=== PATIENT | female | born 1965 | race African-American/Black ===

== ENCOUNTER 2018-12-29 10:56 | Outpatient (CLI) | payer BC ==
--- NOTE | 2018-12-29 13:18 | MMO ---
Bilateral MAMMO Bilat Screen [facility]. CLINICAL HISTORY: Patient is 53 years old and is seen for screening. The patient has no family history of breast cancer. The patient has no personal history of cancer. VIEWS: The views performed were: bilateral craniocaudal with tomosynthesis and bilateral mediolateral oblique with tomosynthesis. FILMS COMPARED: The present examination has been compared to prior imaging studies performed at [facility] on 10/20/2013, 01/29/2015, 02/12/2016 and 02/12/2017. MAMMOGRAM FINDINGS: The breasts are heterogeneously dense, which could obscure a lesion on mammography. There are no suspicious masses, suspicious calcifications, or new areas of architectural distortion. IMPRESSION: THERE IS NO MAMMOGRAPHIC EVIDENCE OF MALIGNANCY. A ROUTINE FOLLOW-UP MAMMOGRAM IN 1 YEAR IS RECOMMENDED. THE RESULTS OF THIS EXAM WERE SENT TO THE PATIENT. ACR BI-RADS Category 1 - Negative MAMMOGRAPHY NOTE: 1. A negative mammogram report should not delay a biopsy if a dominant of clinically suspicious mass is present. 2. Approximately 10% to 15% of breast cancers are not detected by mammography. 3. Adenosis and dense breasts may obscure an underlying neoplasm.
== END 2018-12-29 10:57 | disposition home or self-care (01) ==
LOC: BICMAMMO 10:56
PROVIDERS: ATTEND Physician Assistant
DX: Z12.31 Encounter for screening mammogram for malignant neoplasm of breast (principal)
CPT/HCPCS: 77063; 77067

== ENCOUNTER 2019-10-25 13:50 | Outpatient (CLI) | payer BC ==
--- NOTE | 2019-10-25 15:53 | MRI ---
MR OF THE LEFT KNEE WITHOUT CONTRAST: 10/25/19 INDICATION: History of left knee pain for many months. COMPARISON: None. FINDINGS: There is mild joint capsular distention. There is a small Lang's cyst. There is a 3 mm full thickness articular cartilage fissure involving the inferior median patellar rid ge. There is a small full thickness articular cartilage defect involving the central trochlea measuri ng 3 mm. There is prominent marginal osteophytes affecting the femorotibial compartments with moderat e to severe diffuse chondral thinning involving the lateral femorotibial compartment. There is modera te diffuse narrowing involving the medial femorotibial compartment with an area of near full thicknes s articular cartilage delamination involving the medial femoral condyle on image 16 of series 6 measu ring 4.6 mm. There is prominent degenerative intrasubstance signal with suspected fraying involving the anterior h orn of the lateral meniscus. Medial meniscus appears intact. The ACL, PCL, MCL and LCLC are intact. IT band and popliteus appear within normal limits. IMPRESSION: 1. Mild to moderate osteoarthrosis of the left knee predominantly affecting the lateral femoroti bial compartment where there is prominent chondral thinning involving the lateral femorotibial compar tment with degenerative fraying and intrasubstance degenerative signal involving the anterior horn of the lateral meniscus. 2. Medial meniscus is intact. The ACL, PCL, MCL and LCLC are intact. POS: [facility]
== END 2019-10-25 13:51 | disposition home or self-care (01) ==
LOC: SCSMRI 13:50
PROVIDERS: ATTEND Orthopaedic Surgery
DX: M25.562 Pain in left knee (principal); M17.12 Unilateral primary osteoarthritis, left knee

== ENCOUNTER 2020-01-30 12:13 | Outpatient (CLI) | payer BC ==
--- NOTE | 2020-01-30 13:04 | MMO ---
Bilateral MAMMO Bilat Screen [facility]. CLINICAL HISTORY: Patient is 54 years old and is seen for screening. The patient has no family history of breast cancer. The patient has no personal history of cancer. VIEWS: The views performed were: bilateral craniocaudal with tomosynthesis and bilateral mediolateral oblique with tomosynthesis. FILMS COMPARED: The present examination has been compared to prior imaging studies performed at [facility] on 01/29/2015, 02/12/2016, 02/12/2017 and 12/29/2018. This study has been interpreted with the assistance of computer-aided detection. MAMMOGRAM FINDINGS: The breasts are heterogeneously dense, which could obscure a lesion on mammography. There is an area of architectural distortion seen in the posterior inner region of the right breast. This is best visualized on tomosynthesis CC view slice # 40. In the left breast, there are no suspicious masses, calcifications or areas of architectural distortion. IMPRESSION: AREA OF ARCHITECTURAL DISTORTION IN THE RIGHT BREAST REQUIRES ADDITIONAL EVALUATION. AN ULTRASOUND EXAM IS RECOMMENDED IF NEEDED. ADDITIONAL IMAGING. THE RESULTS OF THIS EXAM WERE SENT TO THE PATIENT. ACR BI-RADS Category 0 - Incomplete: Need additional imaging evaluation. [facility] will notify the patient of the need for additional imaging services. MAMMOGRAPHY NOTE: 1. A negative mammogram report should not delay a biopsy if a dominant of clinically suspicious mass is present. 2. Approximately 10% to 15% of breast cancers are not detected by mammography. 3. Adenosis and dense breasts may obscure an underlying neoplasm. Reported by: ABBY KENDRICK MD Electonically Signed: [id number]
== END 2020-01-30 12:14 | disposition home or self-care (01) ==
LOC: BICMAMMO 12:13
PROVIDERS: ATTEND Physician Assistant
DX: Z12.31 Encounter for screening mammogram for malignant neoplasm of breast (principal); N64.89 Other specified disorders of breast
CPT/HCPCS: 77063; 77067

== ENCOUNTER 2020-01-31 13:51 | Outpatient (CLI) | payer BC ==
--- NOTE | 2020-01-31 14:16 | MMO ---
Right Breast MAMMO Unilat Diag [facility]. CLINICAL HISTORY: Patient is 54 years old and is seen for diagnostic exam. The patient has no family history of breast cancer. The patient has no personal history of cancer. VIEWS: The views performed were: right craniocaudal spot compression with tomosynthesis; right mediolateral oblique spot compression with tomosynthesis; and right mediolateral with tomosynthesis. FILMS COMPARED: The present examination has been compared to prior imaging studies performed at [facility] on 02/12/2016, 02/12/2017, 12/29/2018 and 01/30/2020. This study has been interpreted with the assistance of computer-aided detection. MAMMOGRAM FINDINGS: The breast is heterogeneously dense, which could obscure a lesion on mammography. The questionable asymmetric density and spiculation did not persist with the additional views. There are no suspicious masses, suspicious calcifications, or new areas of architectural distortion. IMPRESSION: THERE IS NO MAMMOGRAPHIC EVIDENCE OF MALIGNANCY. A ROUTINE FOLLOW-UP MAMMOGRAM IN 1 YEAR IS RECOMMENDED. THE RESULTS OF THIS EXAM WERE SENT TO THE PATIENT. ACR BI-RADS Category 2 - Benign finding MAMMOGRAPHY NOTE: 1. A negative mammogram report should not delay a biopsy if a dominant of clinically suspicious mass is present. 2. Approximately 10% to 15% of breast cancers are not detected by mammography. 3. Adenosis and dense breasts may obscure an underlying neoplasm. Reported by: MARIBELL VALDERRAMA MD Electonically Signed: [id number]
== END 2020-01-31 13:52 | disposition home or self-care (01) ==
LOC: BICMAMMO 13:51
PROVIDERS: ATTEND Internal Medicine
DX: N63.10 Unspecified lump in the right breast, unspecified quadrant (principal)
CPT/HCPCS: G0279